=== PATIENT | male | born 1975 | race Caucasian/White ===

== ENCOUNTER → 2021-11-18 13:23 | Outpatient (CLI) | payer OTHER, SELFPAY ==
--- NOTE | 2021-11-18 | DI.MRI.S_ITS ---
PROCEDURE: MR THORACIC SPINE WO/W CON INDICATIONS: Dorsopathy, unspecified TECHNIQUE: Noncontrast sagittal T1 spin echo and T2 fast spin echo, sagittal STIR, axial T1 and T2 fast spin echo through the thoracic spine. After the administration of contrast, axial and sagittal T1 spin echo with fat saturation through the thoracic spine. COMPARISON: [facility], , CT ABDOMEN/PELVIS WITH CONTRAST, 08/22/2021, 12:19. FINDINGS: Image quality: Excellent. Alignment and curvature: There is normal bony alignment. Marrow: There is an aneurysmal cystic structure involving the T12 vertebral body extending into the pedicle and superior articular process. Cyst bulges into the T12-L1 neural foramen as well, but appears separate from the thecal sac, there is no enhancement present. Incidental T11-12 right perineural cyst present in the neural foramen. No marrow edema Spinal cord: Visualized spinal cord is of normal signal and size, without abnormal enhancement. Paraspinous soft tissues: As above. Otherwise, no paravertebral masses or abnormal enhancement. Miscellaneous: Central canal and foramina appear widely patent at all scanned levels. 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 No abnormal enhancement. 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 Consider surgical referral to assess structural integrity Approved by: Tk Floyd M.D. on 11/18/2021 at 18:35
== END ==
PROVIDERS: PCP Internal Medicine; Referring Provider Internal Medicine; Visit Provider Internal Medicine
DX: M85.68 Other cyst of bone, other site (principal); M53.9 Dorsopathy, unspecified
CPT/HCPCS: 72157; A9579

== ENCOUNTER → 2024-01-18 10:25 | Outpatient (CLI) | payer OTHER, SELFPAY ==
[2024-01-18 11:35] LABS: Appearance Urine UA CLEAR; Bilirubin Urine UA NEGATIVE (NEGATIVE); Color Urine UA YELLOW; Glucose Urine UA NEGATIVE (Negative); Ketones Urine UA NEGATIVE (NEGATIVE); Leukocyte Esterase Urine UA NEGATIVE (NEGATIVE); Nitrite Urine UA NEGATIVE (Negative); Occult Blood Urine UA NEGATIVE (Negative); Protein Urine UA NEGATIVE (Negative); Specific Gravity Urine UA <=1.005 (1.000-1.035); Urobilinogen Urine UA 0.2 E.U./dL (0.2)
[2024-01-18 11:47] LABS: Alanine Aminotransferase 39 IU/L (<50); Albumin 4.5 g/dL (3.5-5.0); Albumin Globulin Ratio 1.3 (1.0-2.8); Alkaline Phosphatase 67 U/L (38-126); Aspartate Aminotransferase 27 IU/L (17-59); BUN Creatinine Ratio 16.8 (6-22); Bilirubin Total 0.6 mg/dL (0.2-1.3); Blood Urea Nitrogen 17 mg/dL (9-20); Calcium 9.6 mg/dL (8.4-10.2); Carbon Dioxide 29 mmol/L (22-32); Chloride 100 mmol/L (98-107); Estimated Glomerular Filt Rate > 60 mL/min (>60); Globulin 3.4 g/dL (1.7-4.1); Glucose 101 mg/dL (70-100); HEMOLYSIS < 15 (0-50); Potassium 4.5 mmol/L (3.4-5.1); Sodium 136 mmol/L (137-145); Total Protein 7.9 g/dL (6.3-8.2)
[2024-01-18 11:49] LABS: Bacteria Urine Occasional (0-1); Culture Indicated Urine Cult Not Indicated; RBC Urine 0-1/HPF (0-5/HPF); Squamous Epithelial Cell Urine 0-1 /HPF (0-5/HPF); Urine Volume 10mL (spun); WBC Urine 0-1/HPF (0-5/HPF)
[2024-01-18 12:02] LABS: Vitamin D 25 Hydroxy (D3) 29.9 ng/mL (30.0-100.0)
== END ==
LOC: LAB 10:27
PROVIDERS: Referring Provider Chiropractor; Visit Provider Chiropractor
DX: E55.9 Vitamin D deficiency, unspecified (principal)
CPT/HCPCS: 36415; 80053; 81001; 82306

== ENCOUNTER → 2024-02-26 09:34 | Outpatient (CLI) | payer OTHER, SELFPAY ==
--- NOTE | 2024-02-26 09:38 | DI.RAD.S_ITS ---
PROCEDURE: XR HAND LT 2V INDICATIONS: ARTHRITUS TECHNIQUE: 2 views of the hand(s) acquired. COMPARISON: None. FINDINGS: Bones: No fractures or dislocations. Carpal bones are normally aligned. No suspicious bony lesions. Soft tissues: No suspicious soft tissue calcifications. IMPRESSION: No acute osseous abnormalities. No significant arthritic changes. Dictated by: Adilson Jasso M.D. on 02/29/2024 at 14:18 Approved by: Adilson Jasso M.D. on 02/29/2024 at 14:19
--- NOTE | 2024-02-26 09:38 | DI.RAD.S_ITS ---
PROCEDURE: XR LUMBAR SPINE 2-3V INDICATIONS: ARTHRITUS TECHNIQUE: 3 views of the lumbar spine were acquired. COMPARISON: None. FINDINGS: Bones: 5 [id number] vertebrae are present. Mild dextrocurvature. No vertebral body compression fractures. No suspicious bony lesions. Mild degenerative changes of the lower lumbar spine with mild disc height loss, degenerative endplate changes and spurring. Mild facet arthropathy of the lower lumbar spine. Soft tissues: Overlying bowel gas pattern is normal. No suspicious soft tissue calcifications. IMPRESSION: Mild degenerative changes of the lower lumbar spine. Dictated by: Adilson Jasso M.D. on 02/29/2024 at 14:19 Approved by: Adilson Jasso M.D. on 02/29/2024 at 14:20
--- NOTE | 2024-02-26 09:38 | DI.RAD.S_ITS ---
PROCEDURE: XR SHOULDER RT MIN 2V INDICATIONS: ARTHRITUS TECHNIQUE: 2 views of the shoulder were acquired. COMPARISON: None. FINDINGS: Bones: No fractures or dislocations. No suspicious bony lesions. Visualized ribs appear intact. Soft tissues: No suspicious soft tissue calcifications. IMPRESSION: No significant degenerative changes. No acute osseous abnormalities. Dictated by: Adilson Jasso M.D. on 02/29/2024 at 14:21 Approved by: Adilson Jasso M.D. on 02/29/2024 at 14:21
--- NOTE | 2024-02-26 09:38 | DI.RAD.S_ITS ---
PROCEDURE: XR SHOULDER LT MIN 2V INDICATIONS: ARTHRITUS TECHNIQUE: 2 views of the shoulder were acquired. COMPARISON: None. FINDINGS: Bones: No fractures or dislocations. No suspicious bony lesions. Visualized ribs appear intact. Soft tissues: No suspicious soft tissue calcifications. IMPRESSION: No significant degenerative changes. No acute osseous abnormalities. Dictated by: Adilson Jasso M.D. on 02/29/2024 at 14:20 Approved by: Adilson Jasso M.D. on 02/29/2024 at 14:20
--- NOTE | 2024-02-26 09:38 | DI.RAD.S_ITS ---
PROCEDURE: XR HAND RT 2V INDICATIONS: ARTHRITUS TECHNIQUE: 2 views of the hand(s) acquired. COMPARISON: None. FINDINGS: Bones: No fractures or dislocations. Carpal bones are normally aligned. No suspicious bony lesions. Soft tissues: No suspicious soft tissue calcifications. IMPRESSION: No significant arthritic changes. No acute osseous abnormalities. Dictated by: Adilson Jasso M.D. on 02/29/2024 at 14:19 Approved by: Adilson Jasso M.D. on 02/29/2024 at 14:19
== END ==
PROVIDERS: Referring Provider Chiropractor; Visit Provider Chiropractor
DX: M13.80 Other specified arthritis, unspecified site (principal); M47.816 Spondylosis without myelopathy or radiculopathy, lumbar region
CPT/HCPCS: 72100; 73030; 73120